=== PATIENT | male | born 1985 ===

== ENCOUNTER → 2016-07-12 | Outpatient (REF) | payer OTHER ==
[2016-07-12 11:07] LABS: % NORMAL FORMS 12 % (>=4); IMMOTILITY 51 %; NON PROGRESSIVE MOTILITY (c) 10 %; PROGRESSIVE MOTILITY (a) 39 % (>=32); TOTAL MOTILITY 49 % (>=40); TOTAL PROGRESSIVE SPERM 96.4 M/Ejac.
[2016-07-12 11:08] LABS: TOTAL FUNCTIONAL 25.7 M/Ejac.
== END ==
LOC: M LAB REF 11:56
PROVIDERS: ATTEND Obstetrics & Gynecology
DX: N46.9 Male infertility, unspecified (principal)